=== PATIENT | female | born 1990 | race African-American/Black ===

== ENCOUNTER 2020-09-04 13:48 | Emergency (ER) | payer OTHER ==
[2020-09-04] MEDS ORDERED: Boostrix 0.5 ML (Tdap) VIAL IM ONE (13:49)
[2020-09-04] MEDS ORDERED: Lidocaine 1% w/Epinephrine 1:100K 30 ML VIAL ONE (14:05)
[2020-09-04] MEDS ORDERED: TETANUS, DIPHTHERIA TOX,ADULT (TDVAX) 0.5 ML VIAL IM ONE (14:09)
== END 2020-09-04 14:34 | disposition home or self-care (01) ==
LOC: NAV ERS 13:48
DX: S81.812A Laceration without foreign body, left lower leg, initial encounter (principal); I10 Essential (primary) hypertension; W45.8XXA Other foreign body or object entering through skin, initial encounter
CPT/HCPCS: 12002; 90471; 90714; 90715

== ENCOUNTER 2020-09-16 11:36 | Emergency (ER) | payer OTHER ==
[2020-09-16] MEDS ORDERED: Bacitracin 1 PK ONE (11:53)
== END 2020-09-16 11:57 | disposition home or self-care (01) ==
LOC: NAV ERS 11:36
DX: S81.812D Laceration without foreign body, left lower leg, subsequent encounter (principal); I10 Essential (primary) hypertension; Z79.899 Other long term (current) drug therapy; X58.XXXD Exposure to other specified factors, subsequent encounter